=== PATIENT | female | born 1955 | race Two or more races ===

== ENCOUNTER → 2024-10-13 | Outpatient (CLI) | payer MEDICAID ==
[2024-10-13 10:16] LABS: Urine Bacteria None Seen /hpf (None Seen)
[2024-10-13 10:59] LABS: Basophils # (auto) 0 10 ^3/uL (0-0.2); Basophils % (auto) 0.9 % (0.0-2.0); Eosinophils # (auto) 0.1 10 ^3/uL (0-0.8); Mean Corpuscular Volume 80.4 fL (80.0-100.0); Monocytes # (auto) 0.3 10 ^3/uL (0-1.3); White Blood Cell 3.4 10^3/uL (4.4-10.8)
[2024-10-13 11:02] LABS: Eosinophils % (auto) 2.6 % (0.0-7.0); Hematocrit 39.9 % (36.0-46.0); Hemoglobin 13.2 g/dL (12.2-16.2); Lymphocytes % (auto) 30.5 % (10.0-50.0); Mean Corpuscular Hemoglobin 26.7 pg (28.0-32.0); Mean Corpuscular Hgb Conc. 33.2 g/dL (32.0-36.0); Monocytes % (auto) 8.6 % (0.0-12.0); Neutrophils # (auto) 1.9 10 ^3/uL (1.6-8.6); Neutrophils % (auto) 57.4 % (37.0-80.0); Platelet Count (auto) 238 10^3/uL (140-450); Red Blood Cells 4.97 10^6/uL (4.0-5.20)
[2024-10-13 11:37] LABS: Urine Blood Negative /uL (Negative); Urine Clarity Clear (Clear); Urine Color Light-Yellow (Yellow); Urine Protein, UAD Negative (Negative); Urine Specific Gravity 1.019 (1.001-1.035); Urine Squamous Epithelial Cell FEW /hpf (<5); Urine Urobilinogen Normal (Negative); Urine WBC < 1 /HPF (0-5)
[2024-10-13 12:02] LABS: Alanine Aminotransferase 14 U/L (7-40); Albumin 4.1 g/dL (3.2-4.8); Anion Gap 6 (5-15); BUN/Creatinine Ratio 16.2 (10.0-20.0); Blood Urea Nitrogen 12 mg/dL (9-23); Calcium 9.5 mg/dL (8.7-10.4); Carbon Dioxide 28 mmol/L (20-31); Chloride 102 mmol/L (98-107); Glucose 99 mg/dL (74-106); Potassium 4.3 mmol/L (3.5-5.1); Sodium 136 mmol/L (136-145)
[2024-10-13 12:03] LABS: Bilirubin, Total 0.8 mg/dL (0.2-1.0); Total Protein 6.6 g/dL (5.7-8.2)
[2024-10-13 12:09] LABS: Thyroid Stimulating Hormone 0.21 uIU/mL (0.55-4.78)
[2024-10-13 12:13] LABS: Aspartate Aminotransferase 13 U/L (13-40); Uric Acid 3.1 mg/dL (3.1-7.8)
[2024-10-13 13:07] LABS: Alkaline Phosphatase 98 U/L (46-116)
[2024-10-13 13:46] LABS: Triglycerides 121 mg/dL (< 150)
[2024-10-13 13:47] LABS: Cholesterol 171 mg/dL (< 200)
[2024-10-13 13:48] LABS: HDL Cholesterol 56 mg/dL (40-59)
[2024-10-13 13:50] LABS: LDL Cholesterol 108 mg/dL (< 100)
[2024-10-14 10:06] LABS: Hepatitis B Core Total Antibod Negative (Negative)
[2024-10-14 10:32] LABS: Hepatitis A Total Antibody Positive (Negative); Hepatitis C Antibody Negative (Negative)
== END | disposition home or self-care (01) ==
LOC: LAB 09:48
PROVIDERS: ATTEND Nurse Practitioner Family
DX: Z00.01 Encounter for general adult medical examination with abnormal findings (principal); Z12.11 Encounter for screening for malignant neoplasm of colon; Z11.1 Encounter for screening for respiratory tuberculosis; Z11.3 Encounter for screening for infections with a predominantly sexual mode of transmission; Z13.89 Encounter for screening for other disorder; Z85.3 Personal history of malignant neoplasm of breast
CPT/HCPCS: 36415; 80053; 80061; 81001; 82306; 83036; 83615; 84443; 84550; 85025; 86708; 86803

== ENCOUNTER 2025-02-10 08:33 | Outpatient (CLI) | payer MEDICAID ==
[2025-02-10 08:58] LABS: Urine Bacteria None Seen /hpf (None Seen)
[2025-02-10 09:18] LABS: Urine Blood Negative /uL (Negative); Urine Clarity Clear (Clear); Urine Color Light-Yellow (Yellow); Urine Protein, UAD Negative (Negative); Urine Specific Gravity 1.015 (1.001-1.035); Urine Squamous Epithelial Cell FEW /hpf (<5); Urine Urobilinogen Normal (Negative); Urine WBC 1 /HPF (0-5)
[2025-02-10 09:19] LABS: Basophils # (auto) 0 10 ^3/uL (0-0.2); Basophils % (auto) 1.1 % (0.0-2.0); Eosinophils # (auto) 0.2 10 ^3/uL (0-0.8); Eosinophils % (auto) 4.5 % (0.0-7.0); Hematocrit 39.8 % (36.0-46.0); Hemoglobin 13.6 g/dL (12.2-16.2); Lymphocytes # (auto) 1.1 10 ^3/uL (0.4-5.4); Mean Corpuscular Hgb Conc. 34.1 g/dL (32.0-36.0); Mean Corpuscular Volume 79.1 fL (80.0-100.0); Monocytes # (auto) 0.4 10 ^3/uL (0-1.3); Monocytes % (auto) 10.6 % (0.0-12.0); Neutrophils % (auto) 53.8 % (37.0-80.0); Platelet Count (auto) 226 10^3/uL (140-450); Red Blood Cells 5.03 10^6/uL (4.0-5.20); Red Cell Distribution Width 15.1 % (11.8-14.3); White Blood Cell 3.7 10^3/uL (4.4-10.8)
[2025-02-10 11:29] LABS: Alanine Aminotransferase 13 U/L (7-40); Albumin 4.3 g/dL (3.2-4.8); Alkaline Phosphatase 100 U/L (46-116); Anion Gap 8 (5-15); BUN/Creatinine Ratio 13.9 (10.0-20.0); Blood Urea Nitrogen 10 mg/dL (9-23); Calcium 8.9 mg/dL (8.7-10.4); Carbon Dioxide 25 mmol/L (20-31); Chloride 102 mmol/L (98-107); Glucose 92 mg/dL (74-106); Potassium 4.4 mmol/L (3.5-5.1); Total Protein 6.8 g/dL (5.7-8.2); Uric Acid 3.2 mg/dL (3.1-7.8)
[2025-02-10 11:30] LABS: Aspartate Aminotransferase 17 U/L (0-34); Bilirubin, Total 0.7 mg/dL (0.2-1.0)
[2025-02-10 11:33] LABS: Sodium 135 mmol/L (136-145)
[2025-02-10 15:57] LABS: Cholesterol 179 mg/dL (< 200); HDL Cholesterol 46 mg/dL (40-59)
[2025-02-10 16:00] LABS: LDL Cholesterol 116 mg/dL (< 100); Triglycerides 156 mg/dL (< 150)
== END 2025-02-10 17:00 | disposition home or self-care (01) ==
LOC: LAB 08:33
PROVIDERS: ATTEND Family Medicine
DX: E78.5 Hyperlipidemia, unspecified (principal); K58.9 Irritable bowel syndrome, unspecified; E55.9 Vitamin D deficiency, unspecified; R94.6 Abnormal results of thyroid function studies; Z85.3 Personal history of malignant neoplasm of breast
CPT/HCPCS: 36415; 80053; 80061; 81001; 82306; 83036; 84443; 84550; 85025

== ENCOUNTER 2025-02-17 13:10 | Outpatient (CLI) | payer MEDICAID | END 2025-02-17 17:00 | disposition home or self-care (01) | LOC: LAB 13:10 | PROVIDERS: ATTEND Internal Medicine | DX: E78.5 Hyperlipidemia, unspecified (principal); E55.9 Vitamin D deficiency, unspecified; K58.2 Mixed irritable bowel syndrome; R94.6 Abnormal results of thyroid function studies; Z85.3 Personal history of malignant neoplasm of breast | CPT/HCPCS: 82270 ==

== ENCOUNTER 2025-04-06 08:18 | Outpatient (CLI) | payer MEDICAID ==
[2025-04-06 09:19] LABS: Alanine Aminotransferase 16 U/L (7-40); Alkaline Phosphatase 104 U/L (46-116); Calcium 8.8 mg/dL (8.7-10.4); Triglycerides 116 mg/dL (< 150)
[2025-04-06 09:20] LABS: Albumin 4.2 g/dL (3.2-4.8); Anion Gap 8 (5-15); BUN/Creatinine Ratio 16.5 (10.0-20.0); Bilirubin, Total 0.7 mg/dL (0.2-1.0); Blood Urea Nitrogen 13 mg/dL (9-23); Carbon Dioxide 27 mmol/L (20-31); Chloride 101 mmol/L (98-107); Cholesterol 175 mg/dL (< 200); Glucose 99 mg/dL (74-106); HDL Cholesterol 52 mg/dL (40-59); Potassium 4.7 mmol/L (3.5-5.1); Total Protein 6.5 g/dL (5.7-8.2)
[2025-04-06 09:26] LABS: Sodium 136 mmol/L (136-145)
[2025-04-06 09:37] LABS: Microalb/Creat Ratio, Urine < 3.0
== END 2025-04-06 17:00 | disposition home or self-care (01) ==
LOC: LAB 08:18
PROVIDERS: ATTEND Pathology Anatomic Pathology & Clinical Pathology
DX: E78.5 Hyperlipidemia, unspecified (principal); E03.9 Hypothyroidism, unspecified; R73.9 Hyperglycemia, unspecified; R30.0 Dysuria
CPT/HCPCS: 36415; 80053; 80061; 82043; 82570; 83036; 84436; 84443; 84480

== ENCOUNTER 2025-06-29 09:17 | Outpatient (CLI) | payer MEDICAID ==
[2025-06-29 10:28] LABS: Alanine Aminotransferase 13 U/L (7-40); Albumin 4.1 g/dL (3.2-4.8); Alkaline Phosphatase 112 U/L (46-116); Anion Gap 9 (5-15); BUN/Creatinine Ratio 15.4 (10.0-20.0); Blood Urea Nitrogen 12 mg/dL (9-23); Calcium 8.8 mg/dL (8.7-10.4); Carbon Dioxide 26 mmol/L (20-31); Chloride 101 mmol/L (98-107); Glucose 95 mg/dL (74-106); Potassium 4.4 mmol/L (3.5-5.1); Total Protein 7.1 g/dL (5.7-8.2); Triglycerides 121 mg/dL (< 150)
[2025-06-29 10:29] LABS: Bilirubin, Total 0.8 mg/dL (0.2-1.0); Cholesterol 179 mg/dL (< 200); HDL Cholesterol 55 mg/dL (40-59)
[2025-06-29 10:31] LABS: Sodium 136 mmol/L (136-145)
[2025-06-29 10:55] LABS: Microalb/Creat Ratio, Urine 3.00
== END 2025-06-29 17:00 | disposition home or self-care (01) ==
LOC: LAB 09:17
PROVIDERS: ATTEND Internal Medicine
DX: E11.69 Type 2 diabetes mellitus with other specified complication (principal); E78.5 Hyperlipidemia, unspecified; E03.9 Hypothyroidism, unspecified; E55.9 Vitamin D deficiency, unspecified
CPT/HCPCS: 36415; 80053; 80061; 82043; 82570; 83036; 84436; 84443; 84480